=== PATIENT | female | born 1970 | race Caucasian/White ===

== ENCOUNTER 2017-05-08 04:33 | Emergency (ER) | payer MEDICAID ==
[~2017-05-08] VITALS: Ht 162.6 cm; Wt 47.6 kg
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
--- NOTE | 2017-05-08 04:45 | NUR ---
DR. VALERIO AT BEDSIDE FOR EVAL.
--- NOTE | 2017-05-08 04:49 | NUR ---
[employer] AT BEDSIDE FOR REPORT
--- NOTE | 2017-05-08 07:08 | NUR ---
[facility] AT BEDSIDE
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
--- NOTE | 2017-05-08 08:21 | NUR ---
PT LEFT WITH [employer] OFFICERS.
--- NOTE | 2017-05-08 08:22 | NUR ---
Patient discharged in a stable condition accompanied bu [employer] officers. Written and verbal after care instructions given. Patient verbalizes understanding of instruction.
[2017-05-08 08:23] VITALS: BP 136/78
== END 2017-05-08 08:24 | disposition home or self-care (01) ==
LOC: ER 04:35
DX: T74.21XA Adult sexual abuse, confirmed, initial encounter (principal); J45.909 Unspecified asthma, uncomplicated
CPT/HCPCS: 99283; A4606; Z7610

== ENCOUNTER 2017-09-24 10:32 | Emergency (ER) | payer MEDICAID ==
[~2017-09-24] VITALS: Ht 160 cm; Wt 47.6 kg
[2017-09-24 10:35] VITALS: BP 136/96
[2017-09-24] MEDS ORDERED: TRAMADOL HCL 50 MG TABLET PO ONE (12:00)
== END 2017-09-24 12:59 | disposition home or self-care (01) ==
LOC: ER 10:41
DX: S90.122A Contusion of left lesser toe(s) without damage to nail, initial encounter (principal); J45.909 Unspecified asthma, uncomplicated; F10.10 Alcohol abuse, uncomplicated; W22.01XA Walked into wall, initial encounter; Y93.01 Activity, walking, marching and hiking; Y92.89 Other specified places as the place of occurrence of the external cause; Y99.8 Other external cause status
CPT/HCPCS: 73630-TC; A4606; Z7610